=== PATIENT | female | born 1980 | race Two or more races ===

== ENCOUNTER 2018-04-07 07:00 | Inpatient (IN) | payer OTHER ==
[2018-04-07 07:39] VITALS: BMI 30.5
[2018-04-07] MEDS ORDERED: ONDANSETRON 4 MG/2 ML VIAL IVPUSH PRN (07:53)
[2018-04-07] MEDS ORDERED: morphine SULFATE/Preservative Free 0.5 MG/ML (1cc Syringe) ONE (08:10)
[2018-04-07] MEDS ORDERED: ELECTROLYTE-148 SOLN 500 ML IV ONE (08:30)
[2018-04-07] MEDS ORDERED: CITRIC ACID/SODIUM CITRATE 30 ML UNIT-DOSE CUP PO ONE (08:30)
[2018-04-07 08:32] LABS: INR 0.93 (0.83-1.09); PROTHROMBIN TIME (PATIENT) 10.5 SEC (9.7-13.0)
[2018-04-07] MEDS ORDERED: KETOROLAC TROMETHAMINE 30 MG/1 ML VIAL ONE (08:46)
[2018-04-07] MEDS ORDERED: METHYLERGONOVINE MALEATE 0.2 MG/1 ML AMP IM PRN (08:51)
--- NOTE | 2018-04-07 08:51 | HP ---
Past Medical History - Primary Care Physician PCP:: Magda Doan - Admission Chief Complaint: Previous Section. multiparity. GMD2. Chronic Hypertension History Source: Patient Limitations to Obtaining History: No Limitations - Past Medical History Cardiovascular: Yes: HTN ...: 4 ...Para: 2 ...Term: 2 ...: 0 ...Spon : 1 ...Induced : 0 ...Multiple Gestation: 0 ...LMP: 07/15/17 ... Weeks Gestation by Dates: 38.0 ...EDC by Dates: 04/21/18 Endocrine: Yes: Diabetes Mellitus - Past Surgical History Past Surgical History: Yes: Hx Myomectomy: No Hx Transabdominal Cerclage: No - Smoking History Smoking history: Never smoked Have you smoked in the past 12 months: No - Alcohol/Substance Use Hx Alcohol Use: No History of Substance Use: reports: None - Social History Usual Living Arrangement: Yes: With Spouse History of Recent Travel: No Home Medications - Allergies Allergies/Adverse Reactions: Allergies Allergy/AdvReac Type Severity Reaction Status Date / Time No Known Allergies Allergy Verified 03/28/18 12:16 - Home Medications Home Medications: Ambulatory Orders Glyburide 5 mg PO TID 02/28/18 Vit No.130/Iron/Folic [ Vitamins] 1 each PO DAILY 02/28/18 Cholecalciferol (Vitamin D3) [Vitamin D -] 1 tab PO WEEKLY 03/28/18 Oxycodone HCl/Acetaminophen [Percocet 5-325 mg Tablet] 2 tab PO Q4H #20 tablet MDD 6 04/07/18 Review of Systems - Review of Systems Constitutional: reports: No Symptoms Eyes: reports: No Symptoms HENT: reports: No Symptoms Neck: reports: No Symptoms Cardiovascular: reports: No Symptoms Respiratory: reports: No Symptoms Gastrointestinal: reports: No Symptoms Genitourinary: reports: No Symptoms Breasts: reports: No Symptoms Reported Musculoskeletal: reports: No Symptoms Integumentary: reports: No Symptoms Neurological: reports: No Symptoms Endocrine: reports: No Symptoms Hematology/Lymphatic: reports: No Symptoms Psychiatric: reports: No Symptoms Physical Exam - Maternity Vital Signs: Vital Signs Temperature 98.2 F 04/07/18 07:00 Pulse Rate 74 04/07/18 07:00 Respiratory Rate 18 04/07/18 07:00 Blood Pressure 158/97 04/07/18 07:00 O2 Sat by Pulse Oximetry (%) Constitutional: Yes: Well Nourished, No Distress Neck: Yes: WNL Cardiovascular: Yes: WNL, Regular Rate and Rhythm Lungs: Clear to auscultation Breast(s): Yes: WNL - Abdominal Exam/OB Fundal Height: 39 Number of Fetuses: Single Presentation: Vertex Contractions: No Monitor Mode: External Heart Rate (range): 140 Category: I Decelerations: None - Vaginal Exam/OB Vaginal Bleediing: No Speculum Exam: No Dilatation (cm): closed Effacement (%): long Amniotic Membrane Status: Intact Presentation: Vertex/Position - Physical Exam Edema: No Integumentary: Yes: WNL Psychiatric: Yes: WNL, Alert, Oriented Hemorrhage Risk Assessment - Risk Factors Risk Score: 1 Risk Level: Medium Risk Problem List - Problems (1) Gestational diabetes mellitus (GDM) controlled on oral hypoglycemic drug Code(s): O24.415 - GESTATNL DIABETES IN PREG, CTRL BY ORAL HYPOGLYCEMIC DRUGS (2) Chronic hypertension affecting Code(s): O10.919 - UNSP PRE-EXISTING HTN COMP , UNSP TRIMESTER Assessment/Plan GMDMA2 Chronic HTN Multiparity IUP at 38 week Previous CS x 2 Plan Repeat CS bilateral salpingectomy
[2018-04-07] MEDS ORDERED: ELECTROLYTE-148 SOLN 1,000 ML IV SCH (09:00)
[2018-04-07] MEDS ORDERED: ePHEDrine SULFATE 50 MG/1 ML AMPULE ONE (09:01)
[2018-04-07] MEDS ORDERED: SODIUM CHLORIDE 0.9% P/F 10 ML VIAL IJ ONE (09:04)
[2018-04-07] MEDS ORDERED: ceFAZolin SODIUM 1 GM VIAL ONE (09:04)
[2018-04-07 09:31] LABS: ARTERIAL BLD GAS O2 SATURATION 34.7 % (90-98.9); ARTERIAL BLOOD GAS BASE EXCESS -2.7 meq/l (-2-2); ARTERIAL BLOOD GAS PCO2 51.9 mmHg (35-45); ARTERIAL BLOOD GAS PO2 19.8 mmHg (80-100); ARTERIAL BLOOD GAS pH 7.29 (7.35-7.45)
[2018-04-07 09:39] LABS: VENOUS PC02 42.8 mmHg (38-52); VENOUS PH 7.34 (7.32-7.42); VENOUS PO2 26.1 mmHg (28-48)
--- NOTE | 2018-04-07 09:54 | OP ---
Operative Note - Note: Operative Date: 04/07/18 Pre-Operative Diagnosis: Previous X 2. IUP at 38 week. Gest DM A2. Chronic Hypertension Operation: Repeat Section. BIlateral salpingectomy Findings: Live female infant on LOT Post-Operative Diagnosis: Same as Pre-op Surgeon: Magda Doan [employer] Commodities Grader: Jamal Negron Anesthesiologist/INSTRUMENT ADJUSTER: Mark Story Anesthesia: Spinal Specimens Removed: Live female infant. placenta Estimated Blood Loss (mls): 600 Operative Report Dictated: Yes
[2018-04-07] MEDS ORDERED: TUBERCULIN PPD 5 TU/0.1ML SYRINGE (IN PATIENT USE ONLY) ID ONE (10:00)
[2018-04-07] MEDS ORDERED: OXYTOCIN 20 UNITS in 0.9% NS 20 UNIT/1,000 ML INFUS.BAG IV ONE (10:56)
--- NOTE | 2018-04-07 11:11 | OP ---
DATE OF OPERATION: 04/07/2018 PREOPERATIVE DIAGNOSIS: Gestational diabetes A2, intrauterine at 38 weeks, previous section x2, and multiparity. OPERATION: Repeat section, bilateral salpingectomy.. POSTOPERATIVE DIAGNOSIS: Live female infant, delivered in OT position. SURGEON: Modesto Siddiqui MD CASKET TRIMMER: JASON Ambrosio. MD larios. ANESTHESIOLOGIST: Denys Solorzano MD ANESTHESIA: Spinal. PROCEDURE: Patient was taken to the operating room, placed in supine position, prepped and draped in the usual sterile fashion. A time-out was performed in accordance with hospital regulations. Scalpel was then used to make previous incision through the patients scar. Cautery was then used to go through layers of the abdominal wall to the level of the fascia. Fascia was cut in the midline, and cautery was then used to open the fascia in smiling fashion. Janette was then used to bluntly and sharply dissect the rectus muscle off the fascia. Muscle was split in the midline. Peritoneal cavity was then entered and carried up and downwards. Bladder retractor was then placed. Scalpel was then used to make a low transverse uterine incision. Incision was carried up with use of bandage scissors. A live female was delivered in OT position. Nose and mouth suction performed. Shoulders were delivered without difficulty. Cord was clamped and cut. Cord blood obtained. Placenta was manually extracted from the uterus. The uterus was exteriorized and cleaned with clean lap pads. Uterine incision was then closed using 0 Biosyn suture, first layer continuous and locking, second layer imbricating the first layer. Hemostasis was achieved. Tubes were bilaterally clamped, and LigaSure was then used to perform the bilateral salpingectomy. Tube specimens to Pathology. Uterus interiorized. Abdominal cavity cleaned with clean lap pads. Peritoneum closed using 0 Biosyn suture after abdominal cavity cleaned and packed out, noted to be noral. Muscles approximated in the midline using 0 Biosyn suture. Fascia was then closed using 0 Vicryl suture in 2 parts. Subcutaneous was approximated using 0 Biosyn in 3 interrupted sutures. Skin was then closed using 3-0 Vicryl in subcuticular fashion. Wound was washed and dressed. Patient tolerated the procedure well, was taken to recovery room in stable condition. ESTIMATED BLOOD LOSS: 600 mL. MODESTO SIDDIQUI M.D. [id number]
[2018-04-07] MEDS ORDERED: LABETALOL HCL 200 MG TABLET (FP) ONE (11:28)
[2018-04-07] MEDS: OXYTOCIN 20 UNITS in 0.9% NS 20 UNIT/1,000 ML INFUS.BAG IV SCH (11:30)
[2018-04-07] MEDS ORDERED: LABETALOL HCL 200 MG TABLET (FP) PO PRN (14:00)
--- NOTE | 2018-04-07 15:12 | CONSULT ---
Consult - text type - Consultation Consultation Note: Renal Consult for hypertension 38 year old woman with hx of preeclamspia presented for repeat with hypertension Home Medications Medication Instructions Recorded Glyburide 5 mg PO TID 02/28/18 Vit No.130/Iron/Folic 1 each PO DAILY 02/28/18 [ Vitamins] Cholecalciferol (Vitamin D3) 1 tab PO WEEKLY 03/28/18 [Vitamin D -] Oxycodone HCl/Acetaminophen 2 tab PO Q4H #20 tablet MDD 6 04/07/18 [Percocet 5-325 mg Tablet] Vital Signs Temperature 98.1 F 04/07/18 13:30 Pulse Rate 70 04/07/18 13:30 Respiratory Rate 20 04/07/18 15:00 Blood Pressure 161/78 04/07/18 13:30 O2 Sat by Pulse Oximetry (%) 100 04/07/18 11:00 Intake & Output 04/04/18 04/05/18 04/06/18 04/07/18 23:59 23:59 23:59 23:59 Weight 75.75 kg Current Medications Bisacodyl (Dulcolax Suppository -) 10 mg RC PRN PRN PRN Reason: CONSTIPATION Diphenhydramine HCl (Benadryl Injection -) 25 mg IVPUSH Q4H PRN PRN Reason: Pruritis Last Admin: 04/07/18 11:00 Dose: 25 mg Diphtheria/Tetanus/Acell Pertussis (Boostrix -) 0.5 ml IM .ONCE ONE Stop: 04/08/18 14:01 Parenteral Electrolytes (Plasma-Lyte 148 -) 1,000 mls @ 125 mls/hr IV ASDIR [facility] Last Admin: 04/07/18 07:45 Dose: 125 mls/hr Oxytocin/Sodium Chloride (Normal Saline+20 Units Oxytocin -) 20 unit in 1,000 mls @ 125 mls/hr IV ASDIR [facility] Last Admin: 04/07/18 11:30 Dose: 125 mls/hr Ibuprofen (Motrin -) 600 mg PO Q4H PRN PRN Reason: PAIN LEVEL 1 - 3 Labetalol HCl (Normodyne -) 200 mg PO Q6H PRN PRN Reason: FOR BP= />140/80 Methylergonovine Maleate (Methergine Injection -) 0.2 mg IM Q4H PRN PRN Reason: Excessive Bleeding (L&D) Ondansetron HCl (Zofran Injection) 4 mg IVPUSH Q4H PRN PRN Reason: NAUSEA Oxycodone HCl (Roxicodone -) 5 mg PO Q4H PRN PRN Reason: PAIN LEVEL 4 - 6 Oxycodone HCl (Roxicodone -) 10 mg PO Q4H PRN PRN Reason: PAIN LEVEL 7 - 10 Simethicone (Mylicon -) 80 mg PO Q4H PRN PRN Reason: GAS IMP: Likely recurrent pre-clampsia Plan: Labetalol 200mg Q6h PRN Check CMP, CBC, UA, UPCR low salt diet pain control
[2018-04-07 16:28] LABS: HEMATOCRIT 34.8 % (32.4-45.2); HEMOGLOBIN 11.6 GM/dL (10.7-15.3); MCH 26.3 pg (25.7-33.7); MCHC 33.4 g/dl (32.0-36.0); MEAN CELL VOLUME 78.8 fl (80-96); MEAN PLT VOLUME 10.3 fl (7.5-11.1); PLATELET COUNT 179 K/MM3 (134-434); RBC 4.41 M/mm3 (3.60-5.2); RDW 13.6 % (11.6-15.6); WHITE BLOOD COUNT 15.5 K/mm3 (4.0-10.0)
[2018-04-07 16:53] LABS: ALBUMIN 2.7 g/dl (3.4-5.0); ANION GAP 10 MMOL/L (8-16); BILIRUBIN,TOTAL 0.2 mg/dL (0.2-1.0); BLOOD UREA NITROGEN 9 mg/dL (7-18); CALCIUM 8.1 mg/dL (8.5-10.1); CHLORIDE 110 mmol/L (98-107); CO2 22 mmol/L (21-32); CREATININE 0.5 mg/dL (0.55-1.02); GLUCOSE,RANDOM 63 mg/dL (74-106); POTASSIUM 4.2 mmol/L (3.5-5.1); SGOT/AST 103 U/L (15-37); SGPT/ALT 178 U/L (12-78); SODIUM 142 mmol/L (136-145); TOT PROT 5.7 g/dl (6.4-8.2)
[2018-04-07 16:54] LABS: ALK PHOS 294 U/L (45-117)
[2018-04-07] MEDS: LABETALOL HCL 200 MG TABLET (FP) PO PRN (17:30)
[2018-04-07 18:23] LABS: URINE APPEARANCE CLEAR; URINE BILIRUBIN NEGATIVE (<2.0 mg/dL); URINE COLOR LTYELLOW; URINE GLUCOSE (UA) NEGATIVE (NEGATIVE); URINE KETONE NEGATIVE (NEGATIVE); URINE LEUK ESTERASE NEGATIVE (NEGATIVE); URINE NITRITE NEGATIVE (NEGATIVE); URINE PROTEIN NEGATIVE (NEGATIVE); URINE UROBILINOGEN NEGATIVE mg/dL (0.2-1.0)
[2018-04-08] MEDS: IBUPROFEN 600 MG TABLET (FP) PO PRN ×2 (06:37→13:29)
[2018-04-08] MEDS: LABETALOL HCL 200 MG TABLET (FP) PO PRN (06:37)
[2018-04-08] MEDS: SIMETHICONE 80 MG TAB.CHEW (FP) PO PRN ×3 (06:37→21:26)
[2018-04-08 08:22] LABS: BASO % 0.4 % (0-2.0); EOS % 0.6 % (0-4.5); HEMATOCRIT 29.3 % (32.4-45.2); HEMOGLOBIN 9.6 GM/dL (10.7-15.3); LYMPH % 28.1 % (8-40); MCH 25.8 pg (25.7-33.7); MCHC 32.9 g/dl (32.0-36.0); MEAN CELL VOLUME 78.4 fl (80-96); MEAN PLT VOLUME 9.2 fl (7.5-11.1); MONO % 6.4 % (3.8-10.2); NEUT % 64.5 % (42.8-82.8); PLATELET COUNT 138 K/MM3 (134-434); RBC 3.74 M/mm3 (3.60-5.2); RDW 13.9 % (11.6-15.6)
[2018-04-08] MEDS ORDERED: BISACODYL 10 MG SUPP.RECT RC PRN (08:51)
[2018-04-08] MEDS ORDERED: oxyCODONE HCL 5 MG TABLET PO PRN (08:51)
--- NOTE | 2018-04-08 10:28 | PN ---
Progress Note, Physician Chief Complaint: 38 year old woman with hx of preeclamspia presented for repeat with hypertension. The patient has 15 y/o twins and 9 y/o child at home. Had Gestational DM and HTN during the twin . Denies any headache, chest pains, shortness of breath. No urinary complaints. - Current Medication List Current Medications: Active Medications Bisacodyl (Dulcolax Suppository -) 10 mg RC PRN PRN PRN Reason: CONSTIPATION Diphenhydramine HCl (Benadryl Injection -) 25 mg IVPUSH Q4H PRN PRN Reason: Pruritis Last Admin: 04/07/18 16:08 Dose: 25 mg Diphtheria/Tetanus/Acell Pertussis (Boostrix -) 0.5 ml IM .ONCE ONE Stop: 04/08/18 14:01 Oxytocin/Sodium Chloride (Normal Saline+20 Units Oxytocin -) 20 unit in 1,000 mls @ 125 mls/hr IV ASDIR [facility] Last Admin: 04/07/18 11:30 Dose: 125 mls/hr Ibuprofen (Motrin -) 600 mg PO Q4H PRN PRN Reason: PAIN LEVEL 1 - 3 Last Admin: 04/08/18 06:37 Dose: 600 mg Labetalol HCl (Normodyne -) 200 mg PO Q6H PRN PRN Reason: FOR BP= />140/80 Last Admin: 04/08/18 06:37 Dose: 200 mg Methylergonovine Maleate (Methergine Injection -) 0.2 mg IM Q4H PRN PRN Reason: Excessive Bleeding (L&D) Ondansetron HCl (Zofran Injection) 4 mg IVPUSH Q4H PRN PRN Reason: NAUSEA Oxycodone HCl (Roxicodone -) 5 mg PO Q4H PRN PRN Reason: PAIN LEVEL 4 - 6 Oxycodone HCl (Roxicodone -) 10 mg PO Q4H PRN PRN Reason: PAIN LEVEL 7 - 10 Simethicone (Mylicon -) 80 mg PO Q4H PRN PRN Reason: GAS Last Admin: 04/08/18 06:37 Dose: 80 mg - Objective Vital Signs: Vital Signs Temperature 98.6 F 04/08/18 06:00 Pulse Rate 82 04/08/18 06:00 Respiratory Rate 18 04/08/18 06:00 Blood Pressure 138/91 04/08/18 06:00 O2 Sat by Pulse Oximetry (%) 100 04/07/18 11:00 Constitutional: Yes: No Distress, Calm Eyes: Yes: Conjunctiva Clear HENT: Yes: Atraumatic, Normocephalic Neck: Yes: Trachea Midline Cardiovascular: Yes: Regular Rate and Rhythm, S1, S2 Respiratory: Yes: Regular, CTA Bilaterally Gastrointestinal: Yes: Normal Bowel Sounds Genitourinary: Yes: WNL Musculoskeletal: Yes: Back Pain Edema: No Labs: CBC, BMP 04/08/18 08:00 04/07/18 15:40 INR, PTT INR 0.93 (0.83-1.09) 04/07/18 07:30 Problem List - Problems (1) essential hypertension during , delivered Code(s): O10.03 - PRE-EXISTING ESSENTIAL HYPERTENSION COMP THE PUERPERIUM (2) Gestational diabetes mellitus (GDM) controlled on oral hypoglycemic drug Code(s): O24.415 - GESTATNL DIABETES IN PREG, CTRL BY ORAL HYPOGLYCEMIC DRUGS Assessment/Plan 38 year old woman with hx of preeclamspia presented for repeat with hypertension BP in acceptable range at this point. The liver enzymes are slightly elevated. The platelet counts are low normal. No overt signs of HELLP. Will monitor the LFts, Hypertension. Continue the Labetelol as ordered. Will follow with you. Thank you. Lynda Reyes MD
--- NOTE | 2018-04-08 13:12 | PN ---
Progress Note (SOAP) - Subjective Chief Complaint: Pt doing well - Current Medications Current Medications: Active Medications Bisacodyl (Dulcolax Suppository -) 10 mg RC PRN PRN PRN Reason: CONSTIPATION Diphenhydramine HCl (Benadryl Injection -) 25 mg IVPUSH Q4H PRN PRN Reason: Pruritis Last Admin: 04/07/18 16:08 Dose: 25 mg Diphtheria/Tetanus/Acell Pertussis (Boostrix -) 0.5 ml IM .ONCE ONE Stop: 04/08/18 14:01 Oxytocin/Sodium Chloride (Normal Saline+20 Units Oxytocin -) 20 unit in 1,000 mls @ 125 mls/hr IV ASDIR [facility] Last Admin: 04/07/18 11:30 Dose: 125 mls/hr Ibuprofen (Motrin -) 600 mg PO Q4H PRN PRN Reason: PAIN LEVEL 1 - 3 Last Admin: 04/08/18 06:37 Dose: 600 mg Labetalol HCl (Normodyne -) 200 mg PO Q6H PRN PRN Reason: FOR BP= />140/80 Last Admin: 04/08/18 06:37 Dose: 200 mg Methylergonovine Maleate (Methergine Injection -) 0.2 mg IM Q4H PRN PRN Reason: Excessive Bleeding (L&D) Ondansetron HCl (Zofran Injection) 4 mg IVPUSH Q4H PRN PRN Reason: NAUSEA Oxycodone HCl (Roxicodone -) 5 mg PO Q4H PRN PRN Reason: PAIN LEVEL 4 - 6 Oxycodone HCl (Roxicodone -) 10 mg PO Q4H PRN PRN Reason: PAIN LEVEL 7 - 10 Simethicone (Mylicon -) 80 mg PO Q4H PRN PRN Reason: GAS Last Admin: 04/08/18 06:37 Dose: 80 mg - Objective Vital Signs: Vital Signs Temperature 99.2 F 04/08/18 09:00 Pulse Rate 85 04/08/18 09:00 Respiratory Rate 20 04/08/18 09:00 Blood Pressure 123/73 04/08/18 09:00 O2 Sat by Pulse Oximetry (%) 100 04/07/18 11:00 Constitutional: Yes: Well Nourished, No Distress Cardiovascular: Yes: WNL, Regular Rate and Rhythm Respiratory: Yes: WNL, Regular Gastrointestinal: Yes: WNL, Normal Bowel Sounds, Soft ....Post : Yes: Uterus firm, Uterus non-tender Musculoskeletal: Yes: WNL Extremities: Yes: WNL Edema: No Wound/Incision: Yes: Clean/Dry, Well Approximated, Steri Strips, Dressing Removed Labs Lab Results: CBC, BMP 04/08/18 08:00 04/07/18 15:40 Problem List - Problems (1) Gestational diabetes mellitus (GDM) controlled on oral hypoglycemic drug Code(s): O24.415 - GESTATNL DIABETES IN PREG, CTRL BY ORAL HYPOGLYCEMIC DRUGS (2) Chronic hypertension affecting Code(s): O10.919 - UNSP PRE-EXISTING HTN COMP , UNSP TRIMESTER Assessment/Plan CChronic HYpertension SP CS x 3 bilateral salpingectomy POD 1 Plan oob continue present management
[2018-04-08] MEDS ORDERED: DIPHTH,PERTUSS(ACELL),TET 0.5 ML DISP.SYRIN IM ONE (14:00)
[2018-04-08] MEDS: oxyCODONE HCL 5 MG TABLET PO PRN ×2 (16:43→21:27)
--- NOTE | 2018-04-08 17:19 | PN ---
Progress Note (short form) - Note Progress Note: Anesthesia post op note, POD#1, S/P under spinal. VSS. No apparent post anesthesia complications. signed off.
[2018-04-08 22:09] LABS: URINE APPEARANCE CLEAR; URINE BILIRUBIN NEGATIVE (<2.0 mg/dL); URINE COLOR COLORLESS; URINE GLUCOSE (UA) NEGATIVE (NEGATIVE); URINE KETONE NEGATIVE (NEGATIVE); URINE LEUK ESTERASE NEGATIVE (NEGATIVE); URINE NITRITE NEGATIVE (NEGATIVE); URINE PROTEIN NEGATIVE (NEGATIVE); URINE UROBILINOGEN NEGATIVE mg/dL (0.2-1.0)
[2018-04-08 22:20] LABS: EPI CELLS RARE /HPF (FEW)
--- NOTE | 2018-04-09 07:25 | PN ---
Post Progress Note Post Day: 2 Type of Delivery: Repeat C/S Vital Signs: Vital Signs Temperature 98.7 F 04/08/18 21:28 Pulse Rate 96 H 04/09/18 05:22 Respiratory Rate 20 04/09/18 05:22 Blood Pressure 135/88 04/09/18 05:22 O2 Sat by Pulse Oximetry (%) 100 04/07/18 11:00 Breast Exam: Yes: Soft Uterus: Yes: Fundus Firm, Fundus below umbilicus Incision: Yes: Sutures intact Abdomen/GI: Yes: Abdomen soft, Passing flatus, Tolerating PO Lochia: Yes: Serosa Lochia, amount: Moderate Extremities: Yes: Calves non-tender Perineum: Yes: Intact Activity: Ambulating - Labs Labs: CBC WBC 12.0 K/mm3 (4.0-10.0) H 04/08/18 08:00 RBC 3.74 M/mm3 (3.60-5.2) 04/08/18 08:00 Hgb 9.6 GM/dL (10.7-15.3) L 04/08/18 08:00 Hct 29.3 % (32.4-45.2) L D 04/08/18 08:00 MCV 78.4 fl (80-96) L 04/08/18 08:00 MCH 25.8 pg (25.7-33.7) 04/08/18 08:00 MCHC 32.9 g/dl (32.0-36.0) 04/08/18 08:00 RDW 13.9 % (11.6-15.6) 04/08/18 08:00 Plt Count 138 K/MM3 (134-434) D 04/08/18 08:00 MPV 9.2 fl (7.5-11.1) D 04/08/18 08:00 Absolute Neuts (auto) 7.8 K/mm3 (1.5-8.0) 04/08/18 08:00 Neutrophils % 64.5 % (42.8-82.8) 04/08/18 08:00 Lymphocytes % 28.1 % (8-40) 04/08/18 08:00 Monocytes % 6.4 % (3.8-10.2) 04/08/18 08:00 Eosinophils % 0.6 % (0-4.5) D 04/08/18 08:00 Basophils % 0.4 % (0-2.0) 04/08/18 08:00 Nucleated RBC % 0 % (0-0) 04/08/18 08:00 Assessment/Plan day 2 condition stable c/o gas pain antigas med is ordered continue current care encourage po intake encourage ambulation
[2018-04-09] MEDS: IBUPROFEN 600 MG TABLET (FP) PO PRN ×3 (07:38→21:23)
[2018-04-09] MEDS: SIMETHICONE 80 MG TAB.CHEW (FP) PO PRN ×2 (07:38→17:18)
[2018-04-09 08:23] LABS: BASO % 0.3 % (0-2.0); EOS % 0.8 % (0-4.5); HEMATOCRIT 28.4 % (32.4-45.2); HEMOGLOBIN 9.4 GM/dL (10.7-15.3); LYMPH % 27.7 % (8-40); MEAN CELL VOLUME 78.7 fl (80-96); MEAN PLT VOLUME 8.9 fl (7.5-11.1); MONO % 7.6 % (3.8-10.2); NEUT % 63.6 % (42.8-82.8); PLATELET COUNT 155 K/MM3 (134-434); RBC 3.61 M/mm3 (3.60-5.2); RDW 13.9 % (11.6-15.6); WHITE BLOOD COUNT 10.9 K/mm3 (4.0-10.0)
[2018-04-09 08:43] LABS: ALBUMIN 2.3 g/dl (3.4-5.0); ANION GAP 6 MMOL/L (8-16); BILIRUBIN,TOTAL 0.2 mg/dL (0.2-1.0); BLOOD UREA NITROGEN 7 mg/dL (7-18); CHLORIDE 106 mmol/L (98-107); CO2 27 mmol/L (21-32); CREATININE 0.6 mg/dL (0.55-1.02); GLUCOSE,RANDOM 83 mg/dL (74-106); POTASSIUM 4.1 mmol/L (3.5-5.1); SGOT/AST 61 U/L (15-37); SGPT/ALT 100 U/L (12-78); SODIUM 139 mmol/L (136-145); TOT PROT 5.2 g/dl (6.4-8.2)
[2018-04-09 08:45] LABS: ALK PHOS 222 U/L (45-117); URIC ACID 7.4 mg/dL (2.6-7.2)
--- NOTE | 2018-04-09 13:10 | PN ---
Progress Note, Physician Chief Complaint: The patient seen in her room. BP in better range. This is a 38 year old woman with hx of pre-eclamspia presented for repeat C- section with hypertension. The patient has 15 y/o twins and 9 y/o child at home. Had Gestational DM and HTN during the twin . - Current Medication List Current Medications: Active Medications Bisacodyl (Dulcolax Suppository -) 10 mg RC PRN PRN PRN Reason: CONSTIPATION Diphenhydramine HCl (Benadryl Injection -) 25 mg IVPUSH Q4H PRN PRN Reason: Pruritis Last Admin: 04/07/18 16:08 Dose: 25 mg Oxytocin/Sodium Chloride (Normal Saline+20 Units Oxytocin -) 20 unit in 1,000 mls @ 125 mls/hr IV ASDIR [facility] Last Admin: 04/07/18 11:30 Dose: 125 mls/hr Ibuprofen (Motrin -) 600 mg PO Q4H PRN PRN Reason: PAIN LEVEL 1 - 3 Last Admin: 04/09/18 07:38 Dose: 600 mg Labetalol HCl (Normodyne -) 200 mg PO Q6H PRN PRN Reason: FOR BP= />140/80 Last Admin: 04/08/18 06:37 Dose: 200 mg Methylergonovine Maleate (Methergine Injection -) 0.2 mg IM Q4H PRN PRN Reason: Excessive Bleeding (L&D) Ondansetron HCl (Zofran Injection) 4 mg IVPUSH Q4H PRN PRN Reason: NAUSEA Oxycodone HCl (Roxicodone -) 5 mg PO Q4H PRN PRN Reason: PAIN LEVEL 4 - 6 Last Admin: 04/08/18 21:27 Dose: 5 mg Oxycodone HCl (Roxicodone -) 10 mg PO Q4H PRN PRN Reason: PAIN LEVEL 7 - 10 Simethicone (Mylicon -) 80 mg PO Q4H PRN PRN Reason: GAS Last Admin: 04/09/18 07:38 Dose: 80 mg - Objective Vital Signs: Vital Signs Temperature 98.8 F 04/09/18 09:00 Pulse Rate 92 H 04/09/18 09:00 Respiratory Rate 20 04/09/18 09:00 Blood Pressure 127/81 04/09/18 09:00 O2 Sat by Pulse Oximetry (%) 100 04/07/18 11:00 Constitutional: Yes: No Distress, Calm HENT: Yes: Atraumatic Neck: Yes: Trachea Midline Cardiovascular: Yes: Regular Rate and Rhythm, S1, S2 Respiratory: Yes: Regular, CTA Bilaterally Gastrointestinal: Yes: Normal Bowel Sounds, Soft Musculoskeletal: No: Joint Swelling, Muscle Pain Edema: No Neurological: Yes: Alert, Oriented Psychiatric: Yes: Alert, Oriented Labs: CBC, BMP 04/09/18 08:18 04/09/18 07:45 INR, PTT INR 0.93 (0.83-1.09) 04/07/18 07:30 Problem List - Problems (1) essential hypertension during , delivered Code(s): O10.03 - PRE-EXISTING ESSENTIAL HYPERTENSION COMP THE PUERPERIUM (2) Gestational diabetes mellitus (GDM) controlled on oral hypoglycemic drug Code(s): O24.415 - GESTATNL DIABETES IN PREG, CTRL BY ORAL HYPOGLYCEMIC DRUGS Assessment/Plan 38 year old woman with hx of pre-eclamspia presented for repeat with hypertension BP in acceptable range at this point. The liver enzymes are slowly improving. The platelet counts are also improving. No overt signs of HELLP. Will continue the Labetelol as ordered. Once discharged shall follow as outpatient. Thank you. Lynda Reyes MD
[2018-04-09] MEDS: LABETALOL HCL 200 MG TABLET (FP) PO PRN (13:14)
--- NOTE | 2018-04-09 17:25 | HOSP ---
Subjective - Review of Symptoms Subjective: requested by RN to come evaluate the patient as she was dizzy after going to the bathroom Pt evaluated at bedside. states she feels light headed after going to the bathroom. urinated but had some difficulty due to pressure/pain. denies CP, SOB , blurred vision, diaphoresis, palpitations, N/V/C/D. passed blood clot earlier x1 but no persistent vaginal bleeding or vaginal discharge states since she laid down she feels slightly better. pt states she been eating ok. Is currently . was given Motrin earlier for pain and labetolol 200mg x1 HR 82 SBP 130's. FS 130 General laying comfortable HEENT EOMI, PERRL CV S1 S2 RRR no murmur/rub/gallop Lungs CTA anteriorly no wheezing or crackles Dizzyness likely vasovagal vs dehydration. pt symptoms already improved Informed RN to repeat vitals in 1hour and check orthostatics as patient may be volume depleted with breatfeeding and fluid shifts. consider bolus IVF if + Physical Examination Vital Signs: Vital Signs Temperature 98.8 F 04/09/18 09:00 Pulse Rate 77 04/09/18 13:10 Respiratory Rate 20 04/09/18 13:10 Blood Pressure 134/87 04/09/18 13:10 O2 Sat by Pulse Oximetry (%) 100 04/07/18 11:00 Labs: CBC, BMP 04/09/18 08:18 04/09/18 07:45
[2018-04-09] MEDS: OXYTOCIN 20 UNITS in 0.9% NS 20 UNIT/1,000 ML INFUS.BAG IV SCH (19:04)
[2018-04-10] MEDS: LABETALOL HCL 200 MG TABLET (FP) PO PRN ×3 (01:42→20:04)
[2018-04-10] MEDS ORDERED: ACETAMINOPHEN 325 MG TABLET (FP) PO PRN (07:52)
--- NOTE | 2018-04-10 08:09 | PN ---
Progress Note (SOAP) - Subjective Chief Complaint: Pt doing well - Current Medications Current Medications: Active Medications Acetaminophen (Tylenol -) 650 mg PO Q6H PRN PRN Reason: FEVER Labetalol HCl (Normodyne -) 200 mg PO Q6H PRN PRN Reason: FOR BP= />140/80 Last Admin: 04/10/18 07:57 Dose: 200 mg - Objective Vital Signs: Vital Signs Temperature 98.4 F 04/09/18 22:00 Pulse Rate 81 04/10/18 06:00 Respiratory Rate 18 04/10/18 06:00 Blood Pressure 132/87 04/10/18 06:00 O2 Sat by Pulse Oximetry (%) 100 04/07/18 11:00 Constitutional: Yes: Well Nourished, No Distress Cardiovascular: Yes: WNL, Regular Rate and Rhythm Gastrointestinal: Yes: WNL, Normal Bowel Sounds, Abdomen, Obese ....Post : Yes: Uterus firm, Uterus non-tender Breast(s): Yes: WNL Musculoskeletal: Yes: WNL Extremities: Yes: WNL Edema: No Wound/Incision: Yes: Steri Strips, Open to air Neurological: Yes: WNL, Alert, Oriented Labs Lab Results: CBC, BMP 04/09/18 08:18 04/09/18 07:45 Problem List - Problems (1) Gestational diabetes mellitus (GDM) controlled on oral hypoglycemic drug Code(s): O24.415 - GESTATNL DIABETES IN PREG, CTRL BY ORAL HYPOGLYCEMIC DRUGS (2) Chronic hypertension affecting Code(s): O10.919 - UNSP PRE-EXISTING HTN COMP , UNSP TRIMESTER Assessment/Plan GMDMA2 normal levels Chronic HTN BP elvated on meds Previous CS x 3 POD 3 Plan Continue Labetalol renal consult appreciated
[2018-04-10] MEDS: SIMETHICONE 80 MG TAB.CHEW (FP) PO PRN ×3 (08:22→20:04)
[2018-04-10] MEDS: ACETAMINOPHEN 500 MG TABLET (FP) PO PRN ×3 (08:22→21:34)
[2018-04-10 08:24] LABS: BASO % 0.4 % (0-2.0); EOS % 1.2 % (0-4.5); HEMATOCRIT 28.9 % (32.4-45.2); HEMOGLOBIN 9.8 GM/dL (10.7-15.3); MCH 26.5 pg (25.7-33.7); MCHC 33.8 g/dl (32.0-36.0); MEAN CELL VOLUME 78.3 fl (80-96); MEAN PLT VOLUME 8.6 fl (7.5-11.1); NEUT % 55.4 % (42.8-82.8); PLATELET COUNT 196 K/MM3 (134-434); RDW 14.3 % (11.6-15.6); WHITE BLOOD COUNT 8.5 K/mm3 (4.0-10.0)
--- NOTE | 2018-04-10 12:37 | PN ---
Progress Note (short form) - Note Progress Note: Renal follow up for hypertension Pt seen and examined at the bedside overnight events reviewed, had dizziness when going to bathroom last night no dizziness, lightlheadedness now no CP, CLEMONS, Blurry vision Vital Signs Temperature 98.2 F 04/10/18 10:00 Pulse Rate 76 04/10/18 10:00 Respiratory Rate 20 04/10/18 10:00 Blood Pressure 146/87 04/10/18 10:00 O2 Sat by Pulse Oximetry (%) 100 04/07/18 11:00 Intake & Output 04/07/18 04/08/18 04/09/18 04/10/18 23:59 23:59 23:59 23:59 Intake Total 960 1300 Output Total 1000 3450 Balance -40 -2150 Weight 75.75 kg NAD awake and alert No Le edema CBC, BMP 04/10/18 07:45 04/09/18 07:45 Current Medications Acetaminophen (Tylenol -) 1,000 mg PO Q6H PRN PRN Reason: FEVER Last Admin: 04/10/18 08:22 Dose: 1,000 mg Labetalol HCl (Normodyne -) 200 mg PO Q6H PRN PRN Reason: FOR BP= />140/80 Last Admin: 04/10/18 07:57 Dose: 200 mg Simethicone (Mylicon -) 80 mg PO Q4H PRN PRN Reason: GAS Last Admin: 04/10/18 08:22 Dose: 80 mg 38 year old woman s/p repeat with postpatrum hypertension. # hypertension secondary to preeclasmpia +/- HELLP BP well controlled continue Labetalol as needed anticipate she will be discharged on BID labetalol LFT's improving, repeat CMP tomorrow Plt counts WNL Check LDH and haptoglobin tomorrow as well pain control low salt diet will need outpatient monitoring of BP Nolan Cordoba DO
[2018-04-11] MEDS: LABETALOL HCL 200 MG TABLET (FP) PO PRN ×4 (02:13→20:05)
[2018-04-11] MEDS: ACETAMINOPHEN 500 MG TABLET (FP) PO PRN (05:43)
[2018-04-11 07:40] LABS: HEMATOCRIT 29.1 % (32.4-45.2); HEMOGLOBIN 9.4 GM/dL (10.7-15.3); MCH 25.6 pg (25.7-33.7); MCHC 32.4 g/dl (32.0-36.0); MEAN CELL VOLUME 78.8 fl (80-96); MEAN PLT VOLUME 8.4 fl (7.5-11.1); PLATELET COUNT 223 K/MM3 (134-434); RBC 3.69 M/mm3 (3.60-5.2); RDW 14.1 % (11.6-15.6); WHITE BLOOD COUNT 8.4 K/mm3 (4.0-10.0)
[2018-04-11 08:16] LABS: CHLORIDE 107 mmol/L (98-107); POTASSIUM 4.2 mmol/L (3.5-5.1); SODIUM 141 mmol/L (136-145)
[2018-04-11 08:24] LABS: ALBUMIN 2.5 g/dl (3.4-5.0); ALK PHOS 211 U/L (45-117); ANION GAP 11 MMOL/L (8-16); BILIRUBIN,TOTAL 0.2 mg/dL (0.2-1.0); BLOOD UREA NITROGEN 9 mg/dL (7-18); CALCIUM 8.4 mg/dL (8.5-10.1); CO2 23 mmol/L (21-32); CREATININE 0.4 mg/dL (0.55-1.02); GLUCOSE,RANDOM 88 mg/dL (74-106); LDH 352 U/L (84-246); TOT PROT 5.5 g/dl (6.4-8.2)
[2018-04-11 08:32] LABS: SGOT/AST 455 U/L (15-37); SGPT/ALT 526 U/L (12-78)
--- NOTE | 2018-04-11 10:55 | PN ---
Post Progress Note - Subjective Subjective: PT feeling well, mild BPs overnight. Renal following. Elevated AST/ALT on labs this morning. Type of Delivery: Repeat C/S Vital Signs: Vital Signs Temperature 98.9 F 04/11/18 08:00 Pulse Rate 79 04/11/18 08:00 Respiratory Rate 20 04/11/18 08:00 Blood Pressure 136/95 04/11/18 08:00 O2 Sat by Pulse Oximetry (%) 100 04/07/18 11:00 Uterus: Yes: Fundus Firm Incision: Yes: Sutures intact Abdomen/GI: Yes: Abdomen soft Lochia: Yes: Rubra Lochia, amount: Small Extremities: Yes: Calves non-tender Perineum: Yes: Intact Activity: Ambulating - Labs Labs: CBC WBC 8.4 K/mm3 (4.0-10.0) 04/11/18 06:00 RBC 3.69 M/mm3 (3.60-5.2) 04/11/18 06:00 Hgb 9.4 GM/dL (10.7-15.3) L 04/11/18 06:00 Hct 29.1 % (32.4-45.2) L 04/11/18 06:00 MCV 78.8 fl (80-96) L 04/11/18 06:00 MCH 25.6 pg (25.7-33.7) L 04/11/18 06:00 MCHC 32.4 g/dl (32.0-36.0) 04/11/18 06:00 RDW 14.1 % (11.6-15.6) 04/11/18 06:00 Plt Count 223 K/MM3 (134-434) 04/11/18 06:00 MPV 8.4 fl (7.5-11.1) 04/11/18 06:00 Absolute Neuts (auto) 4.7 K/mm3 (1.5-8.0) 04/10/18 07:45 Neutrophils % 55.4 % (42.8-82.8) 04/10/18 07:45 Lymphocytes % 36.0 % (8-40) D 04/10/18 07:45 Monocytes % 7.0 % (3.8-10.2) 04/10/18 07:45 Eosinophils % 1.2 % (0-4.5) 04/10/18 07:45 Basophils % 0.4 % (0-2.0) 04/10/18 07:45 Nucleated RBC % 0 % (0-0) 04/10/18 07:45 Problem List - Problems (1) Chronic hypertension affecting Code(s): O10.919 - UNSP PRE-EXISTING HTN COMP , UNSP TRIMESTER (2) Gestational diabetes mellitus (GDM) controlled on oral hypoglycemic drug Code(s): O24.415 - GESTATNL DIABETES IN PREG, CTRL BY ORAL HYPOGLYCEMIC DRUGS Assessment/Plan 38 y/o POD# 4 s/p delivery, HTN, GDM Afebrile BPs within normal/mild range, renal following. Elevated AST/ALT and LDH today, will await their recommendations for further management. Pt asymptomatic, denies CLEMONS/RUQ pain/spots in vision. Continue anti hypertensive meds regular diet encourage ambulation PO pain meds
--- NOTE | 2018-04-11 11:44 | PN ---
Progress Note (short form) - Note Progress Note: Renal follow up for hypertension Pt seen and examined at the bedside no acute complaints no sob, cp, abd pain, N/V/D Vital Signs Temperature 98.9 F 04/11/18 08:00 Pulse Rate 79 04/11/18 08:00 Respiratory Rate 20 04/11/18 08:00 Blood Pressure 136/95 04/11/18 08:00 O2 Sat by Pulse Oximetry (%) 100 04/07/18 11:00 Intake & Output 04/08/18 04/09/18 04/10/18 04/11/18 23:59 23:59 23:59 23:59 Intake Total 1300 Output Total 3450 Balance -2150 NAD awake and alert No Le edema CBC, BMP 04/11/18 06:00 04/11/18 06:00 Current Medications Acetaminophen (Tylenol -) 1,000 mg PO Q6H PRN PRN Reason: FEVER Last Admin: 04/11/18 05:43 Dose: 1,000 mg Labetalol HCl (Normodyne -) 200 mg PO Q6H PRN PRN Reason: FOR BP= />140/80 Last Admin: 04/11/18 08:08 Dose: 200 mg Simethicone (Mylicon -) 80 mg PO Q4H PRN PRN Reason: GAS Last Admin: 04/10/18 20:04 Dose: 80 mg 38 year old woman s/p repeat with postpatrum hypertension. # hypertension secondary to preeclasmpia + HELLP syndrome BP reasonably controlled on Labetalolol, will maintain the same LFT's up trending, will get US of RUQ and trend LFT's and LDH d/c acetaminophen for now can use Motrin PRN as needed for pain control Low salt diet Above was discussed with patient and family Nolan Cordoba DO
[2018-04-11] MEDS ORDERED: IBUPROFEN 400 MG TABLET (FP) PO PRN (11:45)
[2018-04-11 16:49] LABS: ALK PHOS 247 U/L (45-117); ANION GAP 6 MMOL/L (8-16); BILIRUBIN,TOTAL 0.3 mg/dL (0.2-1.0); BLOOD UREA NITROGEN 8 mg/dL (7-18); CALCIUM 8.8 mg/dL (8.5-10.1); CHLORIDE 104 mmol/L (98-107); CO2 28 mmol/L (21-32); CREATININE 0.5 mg/dL (0.55-1.02); GLUCOSE,RANDOM 76 mg/dL (74-106); LDH 351 U/L (84-246); POTASSIUM 4.3 mmol/L (3.5-5.1); SGOT/AST 440 U/L (15-37); SGPT/ALT 565 U/L (12-78); SODIUM 138 mmol/L (136-145); TOT PROT 6.8 g/dl (6.4-8.2)
[2018-04-12] MEDS: LABETALOL HCL 200 MG TABLET (FP) PO PRN (02:01)
--- NOTE | 2018-04-12 06:10 | DS ---
Physical Exam-PERSONNEL MONITOR Vital Signs: Vital Signs Temperature 98.7 F 04/11/18 20:00 Pulse Rate 79 04/12/18 02:00 Respiratory Rate 18 04/12/18 02:00 Blood Pressure 142/77 04/12/18 02:00 O2 Sat by Pulse Oximetry (%) 100 04/07/18 11:00 Constitutional: Yes: Well Nourished, No Distress Cardiovascular: Yes: WNL Respiratory: Yes: WNL, Regular Gastrointestinal: Yes: WNL, Soft ....Post : Yes: Uterus firm, Uterus non-tender Breast(s): Yes: WNL Musculoskeletal: Yes: WNL Extremities: Yes: WNL Edema: No Wound/Incision: Yes: Clean/Dry, Well Approximated, Steri Strips, Open to air Neurological: Yes: WNL, Alert, Oriented Labs: CBC, BMP 04/11/18 06:00 04/11/18 15:30 Delivery - Delivery Section: Low Flap Transverse Type of Anesthesia: Spinal Episiotomy/Laceration: None EBL (cc): 600 Delivery, Single - Stages of Labor Date of Delivery: 04/07/18 Time of Delivery: 09:13 Time Placenta Delivered: 09:15 - Condition of Infant Deputy Director Of Nursing/Site Surveyor Present: Yes Name: Khushbu Elias Infant Gender: Female Weight: 5 lb 12 oz Position: Left, OT Total Hours ROM (Hrs/Mins): 3MIN - 1 Minute Total Score: 9 5 Minutes Total Score: 9 - [place] Feeding Plan Initial Plan: Elected not to breastfeed exclusively throughout hospitalization Discharge Summary Reason For Visit: CEASREAN SECTION Current Active Problems Chronic hypertension affecting (Acute) Gestational diabetes mellitus (GDM) controlled on oral hypoglycemic drug (Acute) essential hypertension during , delivered (Acute) Procedures: Principal: Low transverse Section Other Procedures: BIlateral salpingectomy Hospital Course: Chronic Hypertension on meds seen by renal usg done negative Gestational DMA2 - well controlled Anemia on iron Condition: Good - Instructions Diet, Activity, Other Instructions: Physical activity Resume your normal everyday activity as tolerated no heavy lifting or exercise until seen by your surgeon. You may walk unlimited valdo of and climb stairs. You may resume driving the car when you feel safe and comfortable behind the wheel. No sexual activity as instructed. Wound care If you have a bandage, leave it on, and keep dry for 48-72 hours. After that time discard the outer bandage. If they are tapes on the skin under the out of bandage leave them in place. They will peel off in the next 7 to 10 days. Do Not Peel them off. You may shower the day after surgery. If there are tapes present on the skin, you may shower over them. Diet There are no dietary restrictions. Eat healthy, high-fiber foods. Drink 6 to 8 glasses of liquid each day. This will assist in keeping your bowels are regular. Pain management You may take Tylenol or acetaminophen or Ibuprofen (for example, Motrin, Advil etc.) from my pain prescription medication is ordered should be taken as prescribed for moderate to severe pain. Call MD for any of the following: Severe pain not relieved by medication Fever of 101 or higher Excessive bleeding or drainage on dressing Inability to urinate Referrals: Nolan Cordoba MD [Staff Physician] - Disposition: HOME - Home Medications Comprehensive Discharge Medication List: Ambulatory Orders Glyburide 5 mg PO TID 02/28/18 Vit No.130/Iron/Folic [ Vitamins] 1 each PO DAILY 02/28/18 Cholecalciferol (Vitamin D3) [Vitamin D -] 1 tab PO WEEKLY 03/28/18 Oxycodone HCl/Acetaminophen [Percocet 5-325 mg Tablet] 2 tab PO Q4H #20 tablet MDD 6 04/07/18 Acetaminophen W/ Codeine #3 [Tylenol # 3 -] 1 tab PO Q4H #30 tablet MDD 6 Ferrous Sulfate [Feosol] 325 mg PO BID #60 tablet 04/11/18 Labetalol HCl [Normodyne -] 200 mg PO BID #60 tablet 04/11/18
[2018-04-12 08:11] LABS: BASO % 0.4 % (0-2.0); EOS % 1.7 % (0-4.5); HEMOGLOBIN 9.8 GM/dL (10.7-15.3); LYMPH % 30.8 % (8-40); MCH 25.6 pg (25.7-33.7); MCHC 32.7 g/dl (32.0-36.0); MEAN CELL VOLUME 78.4 fl (80-96); MEAN PLT VOLUME 7.6 fl (7.5-11.1); MONO % 7.4 % (3.8-10.2); NEUT % 59.7 % (42.8-82.8); PLATELET COUNT 247 K/MM3 (134-434); RBC 3.82 M/mm3 (3.60-5.2); RDW 14.2 % (11.6-15.6)
[2018-04-12 08:30] LABS: ALBUMIN 2.7 g/dl (3.4-5.0); BILIRUBIN,DIRECT < 0.2 mg/dL (0.0-0.2); SGOT/AST 322 U/L (15-37)
[2018-04-12 08:31] LABS: ALK PHOS 211 U/L (45-117); BILIRUBIN,TOTAL 0.3 mg/dL (0.2-1.0); TOT PROT 5.9 g/dl (6.4-8.2)
[2018-04-12 08:32] LABS: ALBUMIN 2.6 g/dl (3.4-5.0); ANION GAP 9 MMOL/L (8-16); BLOOD UREA NITROGEN 6 mg/dL (7-18); CALCIUM 8.5 mg/dL (8.5-10.1); CHLORIDE 106 mmol/L (98-107); CO2 24 mmol/L (21-32); GLUCOSE,RANDOM 80 mg/dL (74-106); SGPT/ALT 459 U/L (12-78); SODIUM 139 mmol/L (136-145)
[2018-04-12 08:35] LABS: ALK PHOS 208 U/L (45-117); BILIRUBIN,TOTAL 0.3 mg/dL (0.2-1.0); CREATININE 0.4 mg/dL (0.55-1.02); LDH 291 U/L (84-246); SGOT/AST 322 U/L (15-37); SGPT/ALT 463 U/L (12-78); TOT PROT 5.8 g/dl (6.4-8.2)
[2018-04-12 08:43] VITALS: BP 127/72; PULSE 80; TEMP 99.1
--- NOTE | 2018-04-12 10:44 | PN ---
Progress Note (short form) - Note Progress Note: Renal follow up for hypertension Pt seen and examined at the bedside no complaints no abd pain, N/V, CP Vital Signs Temperature 99.1 F 04/12/18 08:00 Pulse Rate 80 04/12/18 08:00 Respiratory Rate 18 04/12/18 08:00 Blood Pressure 127/72 04/12/18 08:00 O2 Sat by Pulse Oximetry (%) 100 04/07/18 11:00 NAD awake and alert No Le edema CBC, BMP 04/12/18 07:15 04/12/18 07:15 Laboratory Tests 04/11/18 04/11/18 04/12/18 06:00 15:30 07:15 AST 455 H 440 H 322 H ALT 526 H 565 H 463 H Alkaline Phosphatase 211 H D 247 H D 208 H D 04/12/18 07:15 AST 322 H ALT 459 H Alkaline Phosphatase 211 H Current Medications Ibuprofen (Motrin -) 400 mg PO Q6H PRN PRN Reason: FEVER Labetalol HCl (Normodyne -) 200 mg PO Q6H PRN PRN Reason: FOR BP= />140/80 Last Admin: 04/12/18 02:01 Dose: 200 mg Simethicone (Mylicon -) 80 mg PO Q4H PRN PRN Reason: GAS Last Admin: 04/10/18 20:04 Dose: 80 mg 38 year old woman s/p repeat with postpatrum hypertension. # hypertension secondary to preeclasmpia + HELLP syndrome BP well controlled on Labetalol Can be discharged on Labetalol 200mg BID Advised to check BP at home twice a day symptoms of hypotension explained to the patient LFTs downtrending and US showed no structural pathology of liver or gullbladder Low salt diet at home to follow up in our office next week Nolan Cordoba DO
--- NOTE | 2018-04-19 16:33 | PATH ---
Surgical Pathology Report Patient Name: LANETTE ZELAYA [facility]. Rec. 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 Specimen(s) Received A: PLACENTA B: RIGHT FALLOPIAN TUBE C: LEFT FALLOPIAN TUBE Clinical History , 38 weeks, gestational hypertension, gestational diabetes, advanced maternal age Final Diagnosis A. PLACENTA: THIRD TRIMESTER PLACENTA WITH FOCAL INFARCT (1.6 CM IN GREATEST DIMENSION) AND INTRAPARENCHYMAL HEMORRHAGE (1 CM IN GREATEST DIMENSION). TRIVASCULAR CORD. MEMBRANES WITH NO DIAGNOSTIC ABNORMALITIES. B. RIGHT FALLOPIAN TUBE: COMPLETE CROSS SECTION OF THE FALLOPIAN TUBE IDENTIFIED. C. LEFT FALLOPIAN TUBE: COMPLETE CROSS SECTION OF THE FALLOPIAN TUBE IDENTIFIED. ONE PARATUBAL CYST. Electronically Signed Edilberto Summers M.D. Gross Description A. The specimen is received fresh labeled placenta and is a 488 gram, 15.0 x 12.0 x 5.0 cm. placenta with attached membranes and umbilical cord. The attached membranes are denny, translucent with focal opacities and insert marginally. The umbilical cord measures 11 cm. in length and averages 1.4 cm. in diameter. The cord inserts eccentrically, 2.5 cm. to the nearest margin. No true knots or strictures are identified. Cut surface of the umbilical cord reveals 3 vessels. The surface is barrientos-blue with minimal fibrin deposition and appropriate caliber vessels. The maternal surface is red-brown with focal defects. Sectioning reveals 3 hemorrhagic and firm intraparenchymal lesions ranging from 0.6-1.6 cm in greatest dimension. The remaining placental parenchyma is red-brown and spongy. [employer] sections are submitted in 4 cassettes as follows: 1-membrane roll and umbilical cord; 2-3-lesions; 4-additional manufacturers representative placental parenchyma B. Received in formalin labeled "right fallopian tube," is a 9 cm in length fimbriated fallopian tube. The outer surface is denny-shankar and smooth. Sectioning reveals an unremarkable lumen. [employer] sections are submitted in 2 cassettes as follows: 1-fimbria; 2-cross sections of fallopian tube. C. Received in formalin labeled "left fallopian tube," is a 4.5 cm in length fimbriated fallopian tube. The outer surface is denny-shankar and smooth with a 1.0 cm in greatest dimension paratubal cyst attached to the fimbria. Sectioning of the fallopian tube reveals an unremarkable lumen. [employer] sections are submitted in 2 cassettes as follows: 1-fimbria with paratubal cyst; 2-cross sections of fallopian tube. 04/17/2018 [facility]04/17/2018
== END 2018-04-12 12:20 | disposition home or self-care (01) | DRG 765 ==
LOC: JLDR 07:00 → J3W 12:10
PROVIDERS: ADMIT Obstetrics & Gynecology; ATTEND Obstetrics & Gynecology
PROC: 10D00Z1 Extraction of Products of Conception, Low, Open Approach (ICD-10-PCS; principal; 2018-04-07)
PROC: 0UB70ZZ Excision of Bilateral Fallopian Tubes, Open Approach (ICD-10-PCS; 2018-04-07)
DX: O24.425 Gestational diabetes mellitus in childbirth, controlled by oral hypoglycemic drugs (principal); O14.23 HELLP syndrome (HELLP), third trimester; O34.219 Maternal care for unspecified type scar from previous cesarean delivery; O10.03 Pre-existing essential hypertension complicating the puerperium; O99.02 Anemia complicating childbirth; O14.94 Unspecified pre-eclampsia, complicating childbirth; Z37.0 Single live birth; Z3A.38 38 weeks gestation of pregnancy
CPT/HCPCS: 36415; 36600; 76705-TC; 80053; 80076; 81003; 81015; 82570; 82803; 82962; 83010; 83615; 84156; 84550; 85025; 85027; 85610; 85730; 86593; 88302-TC; 88307-TC; 90715